=== PATIENT | female | born 1950 | race Caucasian/White ===

== ENCOUNTER 2016-11-22 22:37 | Emergency (ER) | payer MEDICARE, OTHER ==
[~2016-11-22] VITALS: Ht 152.4 cm; Wt 43.5 kg
[2016-11-22] MEDS ORDERED: WELLBUTRIN (23:00)
[2016-11-23 00:40] LABS: BASOPHILS # (AUTO) 0.1 K/uL (0.0-8.0); BASOPHILS % (AUTO) 1.6 % (0.0-2.0); EOSINOPHILS # (AUTO) 0.3 K/uL (0.0-0.7); EOSINOPHILS % (AUTO) 4.4 % (0.0-7.0); HEMATOCRIT 37.8 % (37-47); HEMOGLOBIN 12.3 G/DL (12.0-16.0); LYMPHOCYTES # (AUTO) 2.3 K/UL (0.8-4.8); LYMPHOCYTES % (AUTO) 39.7 % (20.5-51.5); MEAN CORPUSCULAR HEMOGLOBIN 29.7 UUG (27.0-31.0); MEAN CORPUSCULAR HGB CONC 33 g/dL (32.0-37.0); MEAN CORPUSCULAR VOLUME 91.2 FL (81.0-99.0); MONOCYTES # (AUTO) 0.5 K/UL (0.1-1.30); MONOCYTES % (AUTO) 8.3 % (0.0-11.0); NEUTROPHILS # (AUTO) 2.7 K/UL (1.8-8.9); PLATELET COUNT (AUTO) 271 K/UL (150-450); RED BLOOD CELL COUNT(AUTO) 4.15 MIL/UL (4.2-5.4); WHITE BLOOD COUNT (AUTO) 5.9 K/UL (4.0-11.2)
[2016-11-23 00:56] LABS: CREATININE 0.7 mg/dL (0.6-1.3); POTASSIUM 4.5 mmol/L (3.5-5.1)
[2016-11-23 01:01] LABS: BILIRUBIN,DIRECT 0.1 mg/dL (0.0-0.2); BILIRUBIN,TOTAL 0.9 mg/dL (0.2-1.0); TOTAL PROTEIN, SERUM 6.8 g/dL (6.4-8.2)
--- NOTE | 2016-11-23 01:48 | NUR ---
Patient discharged to home in stable conditon. Written and verbal after care instructions given. Patient verbalizes understanding of instructions.
== END 2016-11-23 01:50 | disposition home or self-care (01) ==
LOC: ER 22:37
DX: J18.9 Pneumonia, unspecified organism (principal)
CPT/HCPCS: 36415; 71010; 80048; 80076; 84484; 85025; 85730; 93005; 99285; A4663; 70030-TC

== ENCOUNTER 2017-01-13 07:34 | Emergency (ER) | payer MEDICARE, OTHER ==
[~2017-01-13] VITALS: Ht 152.4 cm; Wt 54.4 kg
[~2017-01-13 07:34] MED LIST: WELLBUTRIN
--- NOTE | 2017-01-13 08:23 | NUR ---
Patient discharged to home in stable conditon. Written and verbal after care instructions given. Patient verbalizes understanding of instructions.
[2017-01-13 08:24] VITALS: BP 138/74
== END 2017-01-13 08:27 | disposition home or self-care (01) ==
LOC: ER 07:34
DX: R05 Cough (principal); K21.9 Gastro-esophageal reflux disease without esophagitis
CPT/HCPCS: 93005; 99283; A4663

== ENCOUNTER 2017-08-28 17:43 | Emergency (ER) | payer MEDICARE, BC ==
[~2017-08-28] VITALS: Ht 152.4 cm; Wt 41.7 kg
--- NOTE | 2017-08-28 19:30 | NUR ---
Patient discharged to home in stable conditon. Verbal after care instructions given. Patient verbalizes understanding of instructions. Patient stated that she will return for RX on the following day. Patient able to ambulate unassisted with a steady gait. Patient left with all personal belongings.
[2017-08-28 19:34] VITALS: BP 104/62
== END 2017-08-28 19:30 | disposition other institution (70) ==
LOC: ER 17:45
DX: M54.30 Sciatica, unspecified side (principal); K21.9 Gastro-esophageal reflux disease without esophagitis; Z79.899 Other long term (current) drug therapy; Z88.8 Allergy status to other drugs, medicaments and biological substances; Z88.2 Allergy status to sulfonamides
CPT/HCPCS: A4663

== ENCOUNTER 2024-08-07 12:29 | Emergency (ER) | payer BC, MEDICARE ==
[~2024-08-07] VITALS: Ht 152.4 cm; Wt 42.6 kg
[2024-08-07 12:38] VITALS: O2SAT 99
[2024-08-07] MEDS: NEOMY/BACITRA/POLYMYXIN B OINT UD PACKET TP ONE (13:39)
[2024-08-07] MEDS ORDERED: NEOMY/BACITRAC/POLYMI OINT 28.35 GM TUBE ONE (13:42)
== END 2024-08-07 13:50 | disposition home or self-care (01) ==
LOC: ER 12:29
DX: T23.222A Burn of second degree of single left finger (nail) except thumb, initial encounter (principal); T31.0 Burns involving less than 10% of body surface; E78.5 Hyperlipidemia, unspecified; K21.9 Gastro-esophageal reflux disease without esophagitis; Z88.8 Allergy status to other drugs, medicaments and biological substances; Z87.01 Personal history of pneumonia (recurrent); Z88.2 Allergy status to sulfonamides; Z88.7 Allergy status to serum and vaccine; X08.8XXA Exposure to other specified smoke, fire and flames, initial encounter; Y93.G3 Activity, cooking and baking; Y92.098 Other place in other non-institutional residence as the place of occurrence of the external cause; Y99.8 Other external cause status
CPT/HCPCS: 16020; A4606; A4663